=== PATIENT | male | born 1995 | race Hispanic/Latino ===

== ENCOUNTER 2017-06-08 20:54 | Observation (INO) | payer SELFPAY ==
[2017-06-08 21:13] VITALS: BMI 20.3
--- NOTE | 2017-06-08 21:18 | ED PDOC ---
Arrival/HPI - General Time Seen by Provider: 06/08/17 21:01 Historian: Patient - History of Present Illness Narrative History of Present Illness (Text): 06/08/17 21:15 Baltazar Jonas is a 22 year old male who presents to the Emergency department by EMS for public intoxication tonight. Patient was found sleeping on the light rail. Patient admits to drinking alcohol tonight and states he just needs a place to rest. Patient denies any suicidal ideation homicidal ideation, fever, chills, chest pain, shortness of breath, nausea, vomiting, diarrhea, urinary symptoms, back pain, neck pain, headache, dizziness, or any other complaints. Symptom Onset: Gradual Symptom Course: Unchanged Activities at Onset: Light Context: Street Past Medical History - Provider Review Nursing Documentation Reviewed: Yes Family/Social History - Physician Review Nursing Documentation Reviewed: Yes Family/Social History: Unknown Family HX Allergies/Home Meds Allergies/Adverse Reactions: Allergies No Known Allergies Allergy (Verified 06/08/17 21:12) Home Medications: Home Meds Medication Instructions Recorded Confirmed No Known Home Med 06/08/17 06/08/17 Review of Systems - Physician Review All systems were reviewed & negative as marked: Yes - Review of Systems Constitutional: Normal. absent: Fevers Eyes: Normal ENT: Normal Respiratory: Normal. absent: SOB, Cough Cardiovascular: Normal. absent: Chest Pain Gastrointestinal: Normal. absent: Abdominal Pain, Diarrhea, Nausea, Vomiting Genitourinary Male: Normal. absent: Dysuria, Frequency, Hematuria, Urinary Output Changes Musculoskeletal: Normal. absent: Back Pain, Neck Pain Skin: Normal. absent: Rash Neurological: Normal. absent: Headache, Dizziness Endocrine: Normal Hemo/Lymphatic: Normal Psychiatric: Other (+alcohol abuse) Physical Exam Vital Signs Reviewed: Yes Vital Signs Temp Pulse Resp BP Pulse Ox 06/08/17 20:55 97.6 F 74 16 122/65 97 Temperature: Afebrile Blood Pressure: Normal Pulse: Regular Respiratory Rate: Normal Appearance: Positive for: Well-Appearing, Non-Toxic, Comfortable Pain Distress: None Mental Status: Positive for: Alert and Oriented X 3 - Systems Exam Head: Present: Atraumatic, Normocephalic Pupils: Present: PERRL Extroacular Muscles: Present: EOMI Conjunctiva: Present: Normal Mouth: Present: Moist Mucous Membranes Neck: Present: Normal Range of Motion Respiratory/Chest: Present: Clear to Auscultation, Good Air Exchange. No: Respiratory Distress, Accessory Muscle Use Cardiovascular: Present: Regular Rate and Rhythm, Normal S1, S2. No: Murmurs Abdomen: Present: Normal Bowel Sounds. No: Tenderness, Distention, Peritoneal Signs Back: Present: Normal Inspection Upper Extremity: Present: Normal Inspection. No: Cyanosis, Edema Lower Extremity: Present: Normal Inspection. No: Edema Neurological: Present: GCS=15, CN II-XII Intact, Speech Normal Skin: Present: Warm, Dry, Normal Color. No: Rashes Psychiatric: Present: Alert, Oriented x 3, Normal Insight, Normal Concentration Medical Decision Making ED Course and Treatment: 06/08/17 21:15 Impression: 22 year old male brought in for public intoxication Differential Diagnosis included but are not limited to: alcohol intoxication Plan: -- Reassess and disposition Progress Notes: ED OBSERVATION Discharge: Yes Date of observation admission: 06/08/17 Time of observation admission: 21:15 - Observation admission statement Patient is being placed in observation because:: alcohol abuse - Goals of Observation Goals of observation are:: sobriety - Progress Note Progress Note: 06/08/17 21:15 Pt brought in for alcohol intoxication. Pt well-appearing, in no acute distress. Will observe pending sobriety. 06/08/17 23:15 Pt resting comfortably, no new complaints. Stable vital signs. 06/08/17 23:53 Pt is awake, alert, and ambulating with steady gait. Clinically sober, in no acute distress. Pt stable for d/c. - Scribe Statement The provider has reviewed the documentation as recorded by the Deni Irvin Provider Scribe Attestation: All medical record entries made by the Scribzachary were at my direction and personally dictated by me. I have reviewed the chart and agree that the record accurately reflects my personal performance of the history, physical exam, medical decision making, and the department course for this patient. I have also personally directed, reviewed, and agree with the discharge instructions and disposition. Disposition/Present on Arrival - Present on Arrival Any Indicators Present on Arrival: No - Disposition Have Diagnosis and Disposition been Completed?: Yes Diagnosis: Alcohol abuse Disposition: HOME/ ROUTINE Disposition Time: 23:58 Patient Plan: Discharge Condition: STABLE
[2017-06-08 21:53] VITALS: BP 122/65; PULSE 74; RESP 16; TEMP 97.6; O2SAT 97
== END 2017-06-08 23:58 | disposition home or self-care (01) ==
LOC: ED 20:54 → EROBSV 21:15
PROVIDERS: ADMIT Emergency Medicine; ATTEND Emergency Medicine
DX: F10.10 Alcohol abuse, uncomplicated (principal)
CPT/HCPCS: 99281; G0378